=== PATIENT | male | born 1950 | race Caucasian/White ===

== ENCOUNTER 2020-12-10 10:03 | Outpatient (REF) | payer MEDICARE, SELFPAY ==
[2020-12-11 10:52] LABS: Free Prostate Spec Ag 0.5 ng/mL; Percent Free Prostate Spec Ag 24 % (calc) (>25); Prostate Specific Ag Total 2.1 ng/mL (< OR = 4.0)
== END 2020-12-10 10:04 | disposition home or self-care (01) ==
LOC: HO.10HDL 10:03
PROVIDERS: Visit Provider Urology
DX: Z12.5 Encounter for screening for malignant neoplasm of prostate (principal); Z80.42 Family history of malignant neoplasm of prostate
CPT/HCPCS: 36415; 84154

== ENCOUNTER → 2021-01-02 08:20 | Outpatient (BNVA) | payer MEDICARE, BC, SELFPAY | PROVIDERS: PCP Pediatrics; Visit Provider Urology | DX: N40.1 Benign prostatic hyperplasia with lower urinary tract symptoms (principal); R35.1 Nocturia; N41.9 Inflammatory disease of prostate, unspecified; Z80.42 Family history of malignant neoplasm of prostate | CPT/HCPCS: 51798; 99212 ==

== ENCOUNTER 2021-07-03 08:06 | Outpatient (REF) | payer MEDICARE, BC, SELFPAY ==
[2021-07-03 11:08] LABS: Prostate Specific Antigen 3.06 ng/mL (<0.05-4.0)
== END 2021-07-03 08:07 | disposition home or self-care (01) ==
LOC: HO.10HDL 08:06
PROVIDERS: Visit Provider Urology
DX: N40.1 Benign prostatic hyperplasia with lower urinary tract symptoms (principal); N13.8 Other obstructive and reflux uropathy; Z12.5 Encounter for screening for malignant neoplasm of prostate
CPT/HCPCS: 36415; 84153

== ENCOUNTER → 2021-07-09 08:28 | Outpatient (BNVA) | payer MEDICARE, BC, SELFPAY | PROVIDERS: PCP Pediatrics; Visit Provider Urology | DX: Z13.89 Encounter for screening for other disorder (principal) | CPT/HCPCS: Q3014 ==

== ENCOUNTER 2022-01-18 11:08 | Outpatient (REF) | payer MEDICARE, BC, SELFPAY ==
[2022-01-18 14:01] LABS: Prostate Specific Antigen 2.46 ng/mL (<0.05-4.0)
== END 2022-01-18 11:09 | disposition home or self-care (01) ==
LOC: HO.10HDL 11:08
PROVIDERS: Visit Provider Urology
DX: Z12.5 Encounter for screening for malignant neoplasm of prostate (principal); N40.1 Benign prostatic hyperplasia with lower urinary tract symptoms
CPT/HCPCS: 36415; 84153

== ENCOUNTER → 2022-01-29 08:37 | Outpatient (BNVA) | payer MEDICARE, BC, SELFPAY | PROVIDERS: PCP Pediatrics; Visit Provider Urology | DX: N52.9 Male erectile dysfunction, unspecified (principal); N41.9 Inflammatory disease of prostate, unspecified; N40.1 Benign prostatic hyperplasia with lower urinary tract symptoms; N13.8 Other obstructive and reflux uropathy; R33.8 Other retention of urine | CPT/HCPCS: 51798; 99212 ==

== ENCOUNTER → 2022-07-30 10:50 | Outpatient (BNVA) | payer MEDICARE, BC, SELFPAY | PROVIDERS: PCP Pediatrics; Visit Provider Urology | DX: N40.1 Benign prostatic hyperplasia with lower urinary tract symptoms (principal); N13.8 Other obstructive and reflux uropathy; R33.8 Other retention of urine; N52.9 Male erectile dysfunction, unspecified | CPT/HCPCS: Q3014 ==

== ENCOUNTER 2023-01-24 10:45 | Outpatient (REF) | payer MEDICARE, BC, SELFPAY ==
[2023-01-24 14:25] LABS: Prostate Specific Antigen 1.65 ng/mL (<0.05-4.0)
== END 2023-01-24 10:46 | disposition home or self-care (01) ==
LOC: HO.10HDL 10:45
PROVIDERS: Visit Provider Urology
DX: N40.1 Benign prostatic hyperplasia with lower urinary tract symptoms (principal); Z12.5 Encounter for screening for malignant neoplasm of prostate
CPT/HCPCS: 36415; 84153

== ENCOUNTER 2023-02-03 10:29 | Outpatient (AMB) | payer MEDICARE, BC, SELFPAY ==
--- NOTE | 2023-02-03 10:31 | A.OFFVIS_ITS ---
Intake Intake Visit Reasons: 6M PSA(set) Intake Note: Patient is present for Follow Up PSA Urology Med: Finasteride, Tadalafil Antibiotic Allergy:Levofloxacin Blood Thinner: None Pharmacy: [facility] PVR: 0ml Allergies levofloxacin [From LEVAQUIN] Allergy (Unknown, Verified 02/03/23 10:32) INTENSIFIED SYMPTOMS Medication List - Last Reconciled 02/03/23 by Surjit Diaz MD alclometasone 0.05% appl topical atovaquone 750 mg PO DAILY azithromycin mg PO doxycycline monohydrate 100 mg PO BID finasteride 5 mg PO DAILY 90 days ipratropium bromide intranasal ketoconazole 2% topical metronidazole 0.75% 1 appl topical BEDTIME tadalafil 10 mg PO ONCE PRN 30 days HPI HPI Comments History of Present Illness Details Pedro is a pleasant male. He is a patient of Dr. Long. He seen for the following urologic conditions. - family history prostate cancer - father and 2 brothers - elevated PSA - erectile dysfunction Nocturia resolved on finasteride Minimal issues with prostate currently Change finasteride to Tuesday, Tuesday, Tuesday Prior microwave Cialis does work when needed PSA low Elevated PSA PSA has remained in a narrow range between 1.85 and 2.1 Current PSA 12/24 2.1 F 24%, 06/27 3.1. 01/25 2.5, 01/26 1.6 Prior microwave Prior scrotal angiokeratoma Nocturia x1 stable Finasteride helping for urination Erectile dysfunction Progressive Able to obtain but cannot maintain erection Does not need all the time Trial on demand Cialis Chronic Prostatitis Chronic in nature Was treated for Lyme disease 2019 which resolved the urge and frequency Doxycycline can penetrate prostate DHRUV prior mild bogginess of prostate Right groin discomfort [facility] Medical History Benign prostatic hyperplasia Bronchitis Degenerative cervical disc Elevated blood pressure reading in office with diagnosis of hypertension Enlarged prostate without lower urinary tract symptoms (luts) Nocturia Surgical History History of surgery Social History Patient Tobacco Use Status: Former Tobacco user Review of Systems Const Denies chills and Denies fever(s) Card Reports no additional complaints and Denies syncope Resp Denies cough GI Denies abdominal pain and Denies heartburn Reports as per HPI and Denies change in libido Neuro Denies syncope Psych Denies change in libido Endo Denies change in libido Physical Exam Const General: cooperative, healthy appearing, comfortable and no acute distress Orientation/consciousness: patient oriented x3 HEENT Face and sinus: Yes normal facial exam Mouth: moist mucous membranes Neck Neck: Yes normal visual inspection, Yes full ROM and Yes trachea midline Chest Chest palpation & inspection: normal inspection of the chest Resp Effort & Inspection: normal respiratory effort, able to speak in complete sentences and no respiratory distress GI Inspection: Yes normal to inspection Back/Spine/Pelvis Cervical Spine: normal cervical lordosis Thoracic/Lumbar Spine: thoracic and lumbar spine normal to inspection Skin General skin exam: no rashes or lesions noted Neuro General: patient oriented x3, gait normal, tone normal and moves all extremities Extrem General: Yes normal to inspection and Yes capillary refill normal Office Procedures Post Void Residual Post Residual Void Post Void Residual (PVR): 0 [id number]-[id number] Void Residual by ultrasound Results AMB Urinalysis, Automated UA Leukoctes 0 Leisa/uL Last Edit by Yoly Mccoy [facility] on 02/03/23 10:43 UA Nitrite Negative Last Edit by Yoly Mccoy [facility] on 02/03/23 10:43 UA Urobilinogen 0.2 mg/dL Last Edit by Yoly Mccoy A on 02/03/23 10:4 3 UA Protein 0 mg/dL Last Edit by Yoly Mccoy [facility] on 02/03/23 10:43 UA pH 6.0 Last Edit by Yoly Mccoy [facility] on 02/03/23 10:43 UA Blood 0 Hira/uL Last Edit by Yoly Mccoy [facility] on 02/03/23 10:43 UA Specific Roby 1.015 Last Edit by Yoly Mccoy [facility] on 02/03/23 10: 43 UA Ketone Negative Last Edit by Yoly Mccoy [facility] on 02/03/23 10:43 UA Bilirubin 0 mg/dL Last Edit by Yoly Mccoy [facility] on 02/03/23 10:43 UA Glucose 0 mg/dL Last Edit by YolyELIZABETH Phillips on 02/03/23 10:43 Results Reviewed Results Reviewed: Laboratory Last Values Urine pH (Auto) 6.0 02/03/23 10:32 Specific Roby (Auto) 1.015 02/03/23 10:32 Urine Protein (Auto) 0 mg/dL 02/03/23 10:32 Glucose (UA)(Auto) 0 mg/dL 02/03/23 10:32 Urine Ketones (Auto) Negative 02/03/23 10:32 Urine Blood (Auto) 0 Hira/uL 02/03/23 10:32 Urine Nitrite (Auto) Negative 02/03/23 10:32 Urine Bilirubin (Auto) 0 mg/dL 02/03/23 10:32 Urine Urobilinogen (Auto) 0.2 mg/dL 02/03/23 10:32 Leukocyte Esterase (Auto) 0 Leisa/uL 02/03/23 10:32 Assessment & Plan Assessment & Plan (1) Erectile dysfunction: Code(s): N52.9 - Male erectile dysfunction, unspecified (2) BPH loc w urin obs/LUTS: Code(s): N40.1 - Benign prostatic hyperplasia with lower urinary tract symptoms Plan Six month follow-up Orders: Orders AMB Urinalysis Automated Today Z13.9 - Encounter for screening, unspecified AMB Post Void Residual by ultrasound Today N40.1 - Benign prostatic hyperplasia with lower urinary tract symptoms Patient Instructions: Imaging studies, laboratory and physical exam results were discussed and reviewed in detail. No major barriers to patient understanding were identified. An opportunity to ask questions regarding the treatment plan was provided. All questions were answered. The patient expressed understanding and agreement with the above treatment plan. The patient is aware they should contact our office by phone for worsening of their current condition or the appearance of new urologic symptoms. Compliance is encouraged with any medications and followup testing that is ordered. It is a privilege to participate in the urologic care of your patient. If you have any questions or concerns regarding treatment for the above conditions, or other urologic issues, please do not hesitate to contact me. The office telephone contact is [phone]. This note is constructed using voice recognition software. While every effort has been made to ensure accuracy materials management manager errors may have been included. Yours sincerely, Dr Surjit Diaz MD, [facility] - Urology Providers of Expert, Compassionate Care for the Genitourinary System Coding Level of Care Code Est Pt Level 3 (62686) Diagnoses Erectile dysfunction N52.9 BPH loc w urin obs/LUTS N40.1 CPT Codes Post Residual Void - PVR CPT Code: 22586-Gvlp Void Residual by ultrasound ([id number])
== END 2023-02-03 11:14 | disposition home or self-care (01) ==
PROVIDERS: PCP Internal Medicine; Visit Provider Urology
DX: N52.9 Male erectile dysfunction, unspecified (principal); N40.1 Benign prostatic hyperplasia with lower urinary tract symptoms; Z13.9 Encounter for screening, unspecified
CPT/HCPCS: 99213

== ENCOUNTER → 2023-02-03 10:29 | Outpatient (BNVA) | payer MEDICARE, BC, SELFPAY | PROVIDERS: Visit Provider Urology | DX: N40.1 Benign prostatic hyperplasia with lower urinary tract symptoms (principal); N13.8 Other obstructive and reflux uropathy; N52.9 Male erectile dysfunction, unspecified | CPT/HCPCS: 51798; 81003; 99212 ==

== ENCOUNTER 2023-08-04 07:59 | Outpatient (AMB) | payer MEDICARE, BC, SELFPAY ==
--- NOTE | 2023-08-04 08:03 | A.OFFVIS_ITS ---
Intake Intake Visit Reasons: 6m follow up(Confirmed) Intake Note: Patient presents today for a follow-up Meds- Tadalafil Allergies to Antibiotic- Levaquin Blood Thinner- None Drill Doctor Required: No Allergies levofloxacin [From LEVAQUIN] Allergy (Unknown, Verified 08/04/23 08:04) INTENSIFIED SYMPTOMS Medication List - Last Reconciled 08/04/23 by Surjit Diaz MD alclometasone 0.05% appl topical atovaquone 750 mg PO DAILY azithromycin mg PO doxycycline monohydrate 100 mg PO BID finasteride 5 mg PO DAILY 90 days ipratropium bromide intranasal ketoconazole 2% topical metronidazole 0.75% 1 appl topical BEDTIME tadalafil 10 mg PO ONCE PRN 30 days HPI HPI Comments History of Present Illness Details Pedro is a pleasant male. He is a patient of Dr. Long. He seen for the following urologic conditions. - family history prostate cancer - fathe r and 2 brothers - elevated PSA - erectile dysfunction Telemedicine Evaluation 15 min Consultation [employer] [place] Video attempted Minimal issues with prostate currently Off medication Had been using Cialis but does not like to use medications Prior microwave 12 month follow-up PSA Elevated PSA PSA has remained in a narrow range between 1.85 and 2.1 Current PSA 12/24 2.1 F 24%, 06/27 3.1. 01/25 2.5, 01/26 1.6 Prior microwave Prior scrotal angiokeratoma Nocturia x1 stable Finasteride helping for urination Erectile dysfunction Progressive Able to obtain but cannot maintain erection Does not need all the time Trial on demand Cialis Chronic Prostatitis Chronic in nature Was treated for Lyme disease 2019 which resolved the urge and frequency Doxycycline can penetrate prostate DHRUV prior mild bogginess of prostate Right groin discomfort PFSH Medical History Degenerative cervical disc Bronchitis Nocturia Benign prostatic hyperplasia Elevated blood pressure reading in office with diagnosis of hypertension Enlarged prostate without lower urinary tract symptoms (luts) Surgical History History of surgery Social History Patient Tobacco Use Status: Former Tobacco user Review of Systems Const All systems reviewed & are unremarkable except as noted in HPI and below Reports no additional complaints Resp Reports no additional complaints GI Reports no additional complaints Reports as per HPI Musc Reports no additional complaints Physical Exam Telemedicine evaluation Appropriate responses Regular breathing rate and rhythm HEENT Head: Yes normal to inspection Ears: hearing grossly normal bilaterally Eyes General: appearance normal, both eyes and all related structures Neck Neck: Yes normal visual inspection Chest Chest palpation & inspection: normal inspection of the chest Resp Effort & Inspection: normal respiratory effort and able to speak in complete sentences Assessment & Plan Assessment & Plan (1) BPH loc w urin obs/LUTS: Code(s): N40.1 - Benign prostatic hyperplasia with lower urinary tract symptoms (2) Erectile dysfunction: Code(s): N52.9 - Male erectile dysfunction, unspecified Plan Twelve month follow-up PSA Orders: Orders 2 Prostate Specific Antigen 364 Days N40.1 - Benign prostatic hyperplasia with lower urinary tract symptoms Patient Instructions: Imaging studies, laboratory and physical exam results were discussed and reviewed in detail. No major barriers to patient understanding were identified. An opportunity to ask questions regarding the treatment plan was provided. All questions were answered. The patient expressed understanding and agreement with the above treatment plan. The patient is aware they should contact our office by phone for worsening of their current condition or the appearance of new urologic symptoms. Compliance is encouraged with any medications and followup testing that is ordered. It is a privilege to participate in the urologic care of your patient. If you have any questions or concerns regarding treatment for the above conditions, or other urologic issues, please do not hesitate to contact me. The office telephone contact is [phone]. This note is constructed using voice recognition software. While every effort has been made to ensure accuracy mattress maker errors may have been included. Yours sincerely, Dr Surjit Diaz MD, [facility] - Urology Providers of Expert, Compassionate Care for the Genitourinary System Telehealth Telehealth Location of provider rendering services: practice address Location of patient: address on file Patient Identification confirmed using: Name, : Yes Telehealth method: video Patient verbally consented to treatment: Yes Patient verbally consented to billing insurance company: Yes Patient informed of any privacy concerns related to visit: Yes Coding Level of Care Code Tele Est Pt Level 4 (94600) Diagnoses BPH loc w urin obs/LUTS N40.1 Erectile dysfunction N52.9
== END 2023-08-04 09:40 | disposition home or self-care (01) ==
LOC: HO.HUSH 07:59
PROVIDERS: PCP Internal Medicine; Visit Provider Urology
DX: N40.1 Benign prostatic hyperplasia with lower urinary tract symptoms (principal); N52.9 Male erectile dysfunction, unspecified
CPT/HCPCS: 99213

== ENCOUNTER → 2023-08-04 07:59 | Outpatient (BNVA) | payer MEDICARE, BC, SELFPAY | PROVIDERS: PCP Internal Medicine; Visit Provider Urology ==

== ENCOUNTER 2024-07-24 09:44 | Outpatient (REF) | payer MEDICARE, BC, SELFPAY ==
[2024-07-24 11:07] LABS: Prostate Specific Antigen 3.76 ng/mL (<0.05-4.0)
== END 2024-07-24 09:45 | disposition home or self-care (01) ==
LOC: HO.10HDL 09:44
PROVIDERS: Visit Provider Urology
DX: N40.1 Benign prostatic hyperplasia with lower urinary tract symptoms (principal); Z12.5 Encounter for screening for malignant neoplasm of prostate
CPT/HCPCS: 36415; 84153

== ENCOUNTER 2024-09-14 14:00 | Outpatient (AMB) | payer MEDICARE, BC, SELFPAY ==
--- NOTE | 2024-09-14 14:04 | A.OFFVIS_ITS ---
Intake Visit Reasons: 1Y PSA/PVR(set) Intake Note: Patient presents today for a 1Y follow-up/PSA/PVR Meds- NONE Allergies to Antibiotic- Levaquin Blood Thinner- None Personalized Living Manager Nurse Required: No Allergies levofloxacin [From LEVAQUIN] Allergy (Unknown, Verified 09/14/24 14:10) INTENSIFIED SYMPTOMS HPI Comments Details: Pedro is a pleasant male. He is a patient of Dr. Long. He seen for the following urologic conditions. - family history prostate cancer - father and 2 brothers - elevated PSA - erectile dysfunction Yearly follow-up Minimal issues with prostate currently Off medication finasteride Prior microwave Recommend six-month follow-up tele PSA Elevated PSA PSA has remained in a narrow range between 1.85 and 2.1 Current PSA 12/24 2.1 F 24%, 06/27 3.1. 01/25 2.5, 01/26 1.6, 07/31 3.7 Prior microwave Prior scrotal angiokeratoma Nocturia x1 stable Previously had been on finasteride which kept PSA low and stable Erectile dysfunction Progressive Able to obtain but cannot maintain erection Does not need all the time Trial on demand Cialis Chronic Prostatitis Chronic in nature Was treated for Lyme disease 2019 which resolved the urge and frequency Doxycycline can penetrate prostate DHRUV prior mild bogginess of prostate Right groin discomfort PFSH Medical History Degenerative cervical disc Bronchitis Nocturia Benign prostatic hyperplasia Elevated blood pressure reading in office with diagnosis of hypertension Enlarged prostate without lower urinary tract symptoms (luts) Surgical History History of surgery Social History Patient Tobacco Use Status: Former Tobacco user Review of Systems Const Denies chills and Denies fever(s) Card Reports no additional complaints and Denies syncope Resp Denies cough GI Denies abdominal pain and Denies heartburn Reports as per HPI and Denies change in libido Neuro Denies syncope Psych Denies change in libido Endo Denies change in libido Physical Exam Const General: cooperative, healthy appearing, comfortable and no acute distress Orientation/consciousness: patient oriented x3 HEENT Face and sinus: Yes normal facial exam Mouth: moist mucous membranes Neck Neck: Yes normal visual inspection, Yes full ROM and Yes trachea midline Chest Chest palpation & inspection: normal inspection of the chest Resp Effort & Inspection: normal respiratory effort, able to speak in complete sentences and no respiratory distress GI Inspection: Yes normal to inspection Back/Spine/Pelvis Cervical Spine: normal cervical lordosis Thoracic/Lumbar Spine: thoracic and lumbar spine normal to inspection Skin General skin exam: no rashes or lesions noted Neuro General: patient oriented x3, gait normal, tone normal and moves all extremities Extrem General: Yes normal to inspection and Yes capillary refill normal Assessment & Plan Assessment & Plan (1) Rising PSA level: Code(s): R97.20 - Elevated prostate specific antigen [PSA] Category: Medical Plan Six-month follow-up PSA tele Orders: Orders PSA,Total (Free>4and<10) 6 Months N40.1 - Benign prostatic hyperplasia with lower urinary tract symptoms, R97.20 - Elevated prostate specific antigen [PSA] Patient Instructions: This note is constructed using voice recognition software. While every effort has been made to ensure accuracy machine setter and repairer errors may have been included. Imaging studies, laboratory and physical exam results were discussed and re viewed in detail. No major barriers to patient understanding were identified. An opportunity to ask questions regarding the treatment plan was provided. All questions were answered. The patient expressed understanding and agreement with the above treatment plan. The patient is aware they should contact our office by phone for worsening of their current condition or the appearance of new urologic symptoms. Compliance is encouraged with any medications and followup testing that is ordered. It is a privilege to participate in the urologic care of your patient. If you have any questions or concerns regarding treatment for the above conditions, or other urologic issues, please do not hesitate to contact me. The office telephone contact is [phone]. Sincerely, Dr Surjit Diaz MD, [facility] - Urology Compassionate Specialist Care for the Genitourinary System Coding Level of Care Code Est Pt Level 4 (02758) Diagnoses Rising PSA level R97.20
== END 2024-09-14 14:38 | disposition home or self-care (01) ==
LOC: HO.HUSH 14:01
PROVIDERS: PCP Internal Medicine; Visit Provider Urology
DX: R97.20 Elevated prostate specific antigen [PSA] (principal)
CPT/HCPCS: 99214

== ENCOUNTER → 2024-09-14 14:00 | Outpatient (BNVA) | payer MEDICARE, BC, SELFPAY | PROVIDERS: PCP Internal Medicine; Visit Provider Urology | DX: R97.20 Elevated prostate specific antigen [PSA] (principal); N40.1 Benign prostatic hyperplasia with lower urinary tract symptoms | CPT/HCPCS: 99212 ==

== ENCOUNTER 2025-02-27 10:45 | Outpatient (REF) | payer MEDICARE, BC, SELFPAY ==
[2025-02-27 12:32] LABS: PSA,Total (Free>4and<10) 4.00 ng/mL (0.00-4.00)
--- OUTSIDE RECORDS SUMMARY | 2025-02-27 13:34 | XMS_ITS ---
Author Name [facility] Organization Unknown Care Team Organization Name Specialty Phone Email Start Date End Da te [facility] Termed, PROVIDER Primary Care 04/13/202201/04
[2025-03-01 12:09] LABS: Free Prostate Spec Ag 0.5 ng/mL; Percent Free Prostate Spec Ag 13 % (calc) (>25)
== END 2025-02-27 10:46 | disposition home or self-care (01) ==
LOC: HO.LAB 10:45
PROVIDERS: PCP Internal Medicine; Visit Provider Urology
DX: Z12.5 Encounter for screening for malignant neoplasm of prostate (principal); N40.1 Benign prostatic hyperplasia with lower urinary tract symptoms; R97.20 Elevated prostate specific antigen [PSA]
CPT/HCPCS: 36415; 84153; 84154

== ENCOUNTER 2025-03-15 09:53 | Outpatient (AMB) | payer MEDICARE, BC, SELFPAY ==
--- NOTE | 2025-03-15 10:09 | A.OFFVIS_ITS ---
Intake Visit Reasons: 6M PSA- Intake Note: patient presents today for: 6mo follow up urology medications: none blood thinners: none labs done 02/27/25: PSA 4.00 Solar Sales Advisor Required: No Accompanied by: Self / Same As Patient Allergies levofloxacin (From LEVAQUIN) Allergy (Unknown, Verified 03/15/25 10:10) INTENSIFIED SYMPTOMS HPI Comments Details: Pedro is a pleasant male. He is a patient of Dr. Long. He seen for the following urologic conditions. - family history prostate cancer - father and 2 brothers - elevated PSA - erectile dysfunction Six-month follow-up Slight rising PSA Minimal issues with prostate currently Off medication finasteride Started prostate supplement and thinks it is working for him Prior microwave Six-month follow-up office bladder ultrasound cystoscopy Elevated PSA PSA has remained in a narrow range between 1.85 and 2.1 Current PSA 12/24 2.1 F 24%, 06/27 3.1. 01/25 2.5, 01/26 1.6, 07/31 3.7, 02/28 4.0 13% Prior microwave Prior scrotal angiokeratoma Nocturia x1 stable Previously had been on finasteride which kept PSA low and stable Erectile dysfunction Progressive Able to obtain but cannot maintain erection Does not need all the time Trial on demand Cialis Chronic Prostatitis Chronic in nature Was treated for Lyme disease 2019 which resolved the urge and frequency Doxycycline can penetrate prostate DHRUV prior mild bogginess of prostate Right groin discomfort PFSH Medical History Degenerative cervical disc Bronchitis Nocturia Benign prostatic hyperplasia Elevated blood pressure reading in office with diagnosis of hypertension Enlarged prostate without lower urinary tract symptoms (luts) Surgical History History of surgery Social History Patient Tobacco Use Status: Former Tobacco user Review of Systems Const Denies chills and Denies fever(s) Card Reports no additional complaints and Denies syncope Resp Denies cough GI Denies abdominal pain and Denies heartburn Reports as per HPI and Denies change in libido Neuro Denies syncope Psych Denies change in libido Endo Denies change in libido Physical Exam Const General: cooperative, healthy appearing, comfortable and no acute distress Orientation/consciousness: patient oriented x3 HEENT Face and sinus: Yes normal facial exam Mouth: moist mucous membranes Neck Neck: Yes normal visual inspection, Yes full ROM and Yes trachea midline Chest Chest palpation & inspection: normal inspection of the chest Resp Effort & Inspection: normal respiratory effort, able to speak in complete sentences and no respiratory distress GI Inspection: Yes normal to inspection Back/Spine/Pelvis Cervical Spine: normal cervical lordosis Thoracic/Lumbar Spine: thoracic and lumbar spine normal to inspection Skin General skin exam: no rashes or lesions noted Neuro General: patient oriented x3, gait normal, tone normal and moves all extremities Extrem General: Yes normal to inspection and Yes capillary refill normal Assessment & Plan Assessment & Plan (1) Prostatitis: Code(s): N41.9 - Inflammatory disease of prostate, unspecified Category: Medical (2) Erectile dysfunction: Code(s): N52.9 - Male erectile dysfunction, unspecified Category: Medical Plan Six-month follow-up Orders: Orders US bladder 6 Months N40.1 - Benign prostatic hyperplasia with lower urinary tract symptoms Patient Instructions: This note is constructed using voice recognition software. While every effort has been made to ensure accuracy actuarial science professor errors may have been included. Imaging studies, laboratory and physical exam results were discussed and reviewed in detail. No major barriers to patient understanding were identified. An opportunity to ask questions regarding the treatment plan was provided. All questions were answered. The patient expressed understanding and agreement with the above treatment plan. The patient is aware they should contact our office by phone for worsening of their current condition or the appearance of new urologic symptoms. Compliance is encouraged with any medications and followup testing that is ordered. It is a privilege to participate in the urologic care of your patient. If you have any questions or concerns regarding treatment for the above conditions, or other urologic issues, please do not hesitate to contact me. The office telephone contact is [phone]. Sincerely, Dr Surjit Diaz MD, [facility] - Urology Compassionate Specialist Care for the Genitourinary System Coding Level of Care Code Est Pt Level 3 (45760) Complex EM visit Add On G2211 Diagnoses Prostatitis N41.9 Erectile dysfunction N52.9
== END 2025-03-15 10:36 | disposition home or self-care (01) ==
LOC: HO.HUSH 09:53
PROVIDERS: PCP Internal Medicine; Visit Provider Urology
DX: N41.9 Inflammatory disease of prostate, unspecified (principal); N52.9 Male erectile dysfunction, unspecified
CPT/HCPCS: 99213; G2211

== ENCOUNTER → 2025-03-15 09:53 | Outpatient (BNVA) | payer MEDICARE, BC, SELFPAY | PROVIDERS: PCP Internal Medicine; Visit Provider Urology | DX: N40.1 Benign prostatic hyperplasia with lower urinary tract symptoms (principal); N41.9 Inflammatory disease of prostate, unspecified; N52.9 Male erectile dysfunction, unspecified | CPT/HCPCS: 99212 ==